=== PATIENT | male | born 1975 | race Caucasian/White ===

== ENCOUNTER 2018-07-29 11:35 | Emergency (ER) | payer OTHER ==
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
[2018-07-29] MEDS ORDERED: KETOROLAC 60 MG/2 ML VIAL IM ONE (11:45)
[2018-07-29 12:00] VITALS: BP 117/84
--- NOTE | 2018-07-29 13:20 | RADIOLOGY IMAGING REPORT ---
FAC[place]: [facility] [place]IENT NAME: Juan Salinas : 1975 MR: [id number] V: [id number] EXAM DATE: ORDERING PHYSICIAN: LADI GONZALEZ TECHNOLOGIST: Location: [facility] Patient: Juan Salinas : 1975 Visit/Account:[id number] Date of Sevice: 07/29/2018 Exam type: TIBIA FIBULA RIGHT History: trauma Comparison: Right ankle performed today Findings: Thereis a slightly comminuted fractures through the distal diaphysis of the right fibula with minimal lateral displacement distal fracture fragment. There also appears to be a vertical fracture through the posterior malleolus. Also noted is a nondisplaced oblique fracture through the proximal metaphy sis of the right fibula Please see today's right ankle series. IMPRESSION: 1. A comminuted fractures through the distal diaphysis of the right fibula with minimal lateral disp lacement distal fracture fragment Nondisplaced oblique fracture through the proximal metaphysis of the right fibula Vertical fracture through the posterior malleolus Report Dictated By: Elizabeth Gonzalez MD at 07/29/2018 1:14 PM Report E-Signed By: Elizabeth Gonzalez MD at 07/29/2018 1:16 PM WSN:[email or web address]
--- NOTE | 2018-07-29 13:23 | RADIOLOGY IMAGING REPORT ---
FACILITY: PATIENT NAME: Juan Salinas : 1975 MR: [id number] V: [id number] EXAM DATE: ORDERING PHYSICIAN: LADI GONZALEZ TECHNOLOGIST: Location: [facility] Patient: Juan Salinas : 1975 Visit/Account:[id number] Date of Sevice: 07/29/2018 Exam type: ANKLE 3 VIEW MIN RIGHT History: trauma Comparison: Right tibia and fibula today. Findings: There is a slightly comminuted fracture through the distal diaphysis of the right fibula. There is a vertical fracture through the posterior malleolus extending to the articular surface. There is late ral displacement of the talus at the talotibial joint.. There appears to be a slight irregular bony defect projecting just lateral to the midfoot only seen on one view. IMPRESSION: 1. Vertical fracture through the posterior malleolus of the distal right tibia with extension to the articular surface Slightly comminuted fractures through the distal diaphysis the right fibula There is lateral displacement of the talus at the talotibial joint. There appears to be a slightly irregular bony fragment projecting just lateral to the midfoot only se en on one view. Depending upon the clinical findings right foot series may be helpful Report Dictated By: Elizabeth Gonzalez MD at 07/29/2018 1:16 PM Report E-Signed By: Elizabeth Gonzalez MD at 07/29/2018 1:19 PM WSN:[email or web address]
--- NOTE | 2018-07-29 13:27 | RADIOLOGY IMAGING REPORT ---
FACILITY: [facility] PATIENT NAME: Juan Salinas : 1975 MR: [id number] V: [id number] EXAM DATE: ORDERING PHYSICIAN: LADI GONZALEZ TECHNOLOGIST: Location: [facility] [place] Patient: Juan Salinas : 1975 Visit/Account:[id number] Date of Sevice: 07/29/2018 CT Head without contrast and CT Cervical spine: Indication: Trauma. Comparison: None available Technique: CT head: Axial CT images were obtained through the brain from the skull base to the verte x without administration of IV contrast. Reformatted coronal and sagittal images were also obtained. Technique: CT cervical spine: Axial CT imaging of the cervical spine was performed. 2-D sagittal and coronal CT reformats were also obtained. One of the following dose optimization techniques was utilized in the performance of this exam: autom ated exposure control; adjustment of the mA and/or kV according to the patient's size; or use of an i terative reconstruction technique. Specific details can be referenced in the facility's radiology CT exam operational policy. FINDINGS: CT head: No evidence of mass, mass effect, or midline shift. No acute intracranial hemorrhage or acute territorial infarction. The visualized paranasal sinuses and mastoid air cells are clear. CT cervical spine: No cervical spine fracture or acute subluxation is identified.. The prevertebral soft tissues appear unremarkable. The vertebral body heights are well maintained. Disc spaces appear unremarkable. Mild anterior osteophytosis spanning C5-C7. IMPRESSION: 1. No acute intracranial abnormality. 2. No acute osseous or acute alignment abnormality of the cervical spine. Report Dictated By: Norm Sepulveda MD at 07/29/2018 1:00 PM Report E-Signed By: Norm Sepulveda MD at 07/29/2018 1:23 PM WSN:[id number]
--- NOTE | 2018-07-29 13:28 | RADIOLOGY IMAGING REPORT ---
FACILITY: [facility] - [place] PATIENT NAME: Juan Salinas : 1975 MR: [id number] V: [id number] EXAM DATE: ORDERING PHYSICIAN: LADI GONZALEZ TECHNOLOGIST: Location: [facility] Patient: Juan Salinas : 1975 Visit/Account:[id number] Date of Sevice: 07/29/2018 CT Head without contrast and CT Cervical spine: Indication: Trauma. Comparison: None available Technique: CT head: Axial CT images were obtained through the brain from the skull base to the verte x without administration of IV contrast. Reformatted coronal and sagittal images were also obtained. Technique: CT cervical spine: Axial CT imaging of the cervical spine was performed. 2-D sagittal and coronal CT reformats were also obtained. One of the following dose optimization techniques was utilized in the performance of this exam: autom ated exposure control; adjustment of the mA and/or kV according to the patient's size; or use of an i terative reconstruction technique. Specific details can be referenced in the facility's radiology CT exam operational policy. FINDINGS: CT head: No evidence of mass, mass effect, or midline shift. No acute intracranial hemorrhage or acute territorial infarction. The visualized paranasal sinuses and mastoid air cells are clear. CT cervical spine: No cervical spine fracture or acute subluxation is identified.. The prevertebral soft tissues appear unremarkable. The vertebral body heights are well maintained. Disc spaces appear unremarkable. Mild anterior osteophytosis spanning C5-C7. IMPRESSION: 1. No acute intracranial abnormality. 2. No acute osseous or acute alignment abnormality of the cervical spine. Report Dictated By: Norm Sepulveda MD at 07/29/2018 1:00 PM Report E-Signed By: Norm Sepulveda MD at 07/29/2018 1:23 PM WSN:[id number]
[2018-07-29] MEDS ORDERED: TRAM-420 PO (14:25)
== END 2018-07-29 14:50 | disposition home or self-care (01) ==
LOC: ER 12:15
DX: S82.451A Displaced comminuted fracture of shaft of right fibula, initial encounter for closed fracture (principal); S82.891A Other fracture of right lower leg, initial encounter for closed fracture
CPT/HCPCS: 29515; 70450; 72125; 73590; 73610; 96372; 99284; J1885

== ENCOUNTER → 2018-07-29 | Outpatient (CLI) | payer OTHER ==
[~2018-07-29] MED LIST: TRAM-420 PO
== END ==
LOC: AMB 11:07
PROVIDERS: ATTEND Nurse Practitioner
DX: R51 Headache (principal); R41.0 Disorientation, unspecified; R22.0 Localized swelling, mass and lump, head
CPT/HCPCS: A0425; A0427